=== PATIENT | female | born 1995 | race African-American/Black ===

== ENCOUNTER 2024-12-31 14:54 | Inpatient (IN) | payer MEDICAID ==
[~2024-12-31] VITALS: Ht 165.1 cm; Wt 67.4 kg
[~2024-12-31 14:54] MED LIST: ALBU0.084; FLUT100M7; NEBUMIS40
--- NOTE | 2024-12-31 17:14 | ED.PDOC ---
GI ASSESSMENT HPI Comments HPI: 29 y/o F, presents to the ED for CC of abdominal pain. Patient states, she has been experiencing epigastric abdominal pain that radiates to her midback x3days. Patient endorses, new onset symptoms of lightheadedness and nausea starting today (12/31/24). Patient relays, that she did consume copious amounts of alcohol on an empty stomach x4 days ago. Patient denies vomiting, diarrhea, dysuria, or hematuria. No other symptoms or modifying factors at this time. VITALS: Temp: 97.8 BP: 142/90 HR:102 RR: 20 SPO2:100% Past medical history: DENIES ANY Past surgical history: DENIES ANY Medications: Amoxicillin Nicolas HPI: Poor Historian. Marijuana and alcohol Past Medical History: Past Surgical History: REVIEW OF SYSTEMS: CONSTITUTIONAL: Denies acute: fever, diaphoresis, chills, generalized weakness. HEAD: Denies acute: headache, photophobia Eyes: Denies acute: Double vision, vision loss, eye pain, eye discharge. EARS: Denies acute: tinnitus, hearing loss, ear discharge, ear pain, THROAT: Denies acute: sore throat, swelling, difficulty swallowing , pain with swallowing, change in voice. NECK: Denies acute: neck pain, neck swelling, stiff neck. HEART: Denies acute : chest pain, palpitations, LUNGS: Denies acute: SOB, wheezing, cough, hemoptysis ABDOMEN: Denies acute: Nausea, Vomiting, diarrhea, melena , hematemesis, hematochezia SKIN: Denies acute: rash, redness, lesions, itchiness. EXTREMITIES: Denies acute: calf pain, numbness, tingling, weakness, denies pain in extremity. Denies acute: Low back pain. Neuro: Denies acute: focal neurological deficit, motor or sensory focal neurological deficit, tremors, seizure like activity, confusion, dizziness, change in mental status, loss of bowel or bladder function, cauda equina like symptoms. : Denies acute: dysuria, hematuria, flank pain, increase in urinary frequency. PSYCH: Denies acute: hallucination, suicidal ideation, homicidal ideation. FEMALE: Denies acute: abnormal vaginal bleeding, foul odor, unusual discharge. PHYSICAL EXAM: General: -----mild---acute distress, awake and alert. Head: normocephalic, atraumatic. Neck: supple, trachea is midline, no swelling. Throat: Normal phonation. Eyes:, no erythema, no purulent discharge, no proptosis, no icterus. Heart: regular rate, regular rhythm, no significant murmur appreciated. Lungs: no apparent respiratory distress, Able to speak in full sentences. No wheezing, no rhonchi, no crackles. No stridors Clear to auscultation bilaterally. Abdomen: Epigastric tender to palpation, non distended, soft, no guarding, no rebound, + bowel sounds. Neuro: Awake, Alert, oriented to name, self, situation, follows commands GCS=15. Speech is normal. Skin: no petechia, no purpura, no cyanosis, non-pale, not jaundice. Lower extremities: --no - Pitting edema no deformity, no focal swelling, no calf TTP. Makes eye contact. moves all four extremities. Face: no apparent facial droop. Ambulating in the ED independently. ED COURSE: Chief Complaint: Abdominal Pain Time Seen by MD: 17:00 Primary Care Provider: NONE Reviewed Notes: Nurses Notes, Medications, Allergies Allergies: Coded Allergies: NO KNOWN ALLERGIES (Unverified , 05/15/11) Home Meds Reported Medications Nebulizers (Nebulizer) Ultrason Mis 05/15/11 Albuterol Sulfate (Albuterol Sulfate) 0.083 % Neb 05/15/11 Fluticasone-Salmeterol (Advair Diskus) 100/50 Mis 05/15/11 Information Source: Patient Mode of Arrival: Ambulatory Timing: Days Duration: Since onset Prehospital treatment: None Quality: None Vomitus: None Stool: Normal Severity: Moderate Recent Hx of: None Pain Location: Epigastric Modifying Factors: Nothing Associated sign and symptoms: Nausea GI differential Dx Differential Diagnosis: Gastritis/PUD, Gastroenteritis, UTI, Electrolyte Imbalance, Food Poisoning, Bacterial, Viral, Other (DDX include Diverticulitis, colitis, gastroenteritis, acute abdomen, SBO, enteritis, constipation, volvulus, appendicitis, Gallbladder disease, choledocolithiasis, ascending cholangitis, pancreatitis, intraAbdominal mass/neoplasm, hepatitis, UTI, pylonephritis, kidney stone, aneurysm, dissection, Inflammatory bowel disease, gastroparesis, ischemic bowel, ovarian torsion, ovarian cyst/mass, tubo-ovarian abscess, , ectopic , PID, STD.) X-Ray, Labs, Meds, VS Vital Signs Date Time Temp Pulse Resp B/P (MAP) Pulse Ox O2 Delivery O2 Flow Rate FiO2 12/31/24 20:07 98.2 99 18 171/89 (116) 96 98.2 12/31/24 20:07 99 18 96 Room Air 12/31/24 19:57 98.2 87 18 171/89 (116) 99 98.2 12/31/24 15:09 97.8 102 20 142/90 (107) 100 97.8 Lab Test 12/31/24 20:03 12/31/24 17:20 Range/Units Urine Color Colorless Yellow Urine Clarity Turbid H Clear Urine pH 6.5 5.0-9.0 Urine Specific [place] 1.007 1.001-1.035 Urine Protein Negative Negative Urine Ketones Negative Negative Urine Blood 1+ H Negative /uL Urine Nitrite Negative Negative Urine Bilirubin Negative Negative Urine Urobilinogen Normal Negative mg/dL Urine Leukocyte Esterase 1+ Negative /uL Urine RBC 3 0 - 4 /hpf Urine Microscopic WBC 14 H 0-5 /HPF Urine Squamous Epithelial Cells Mod <5 /hpf Urine Bacteria Few H None Seen /hpf Urine Glucose Normal Normal mg/dL Urine Test Negative Negative Urine Opiates Screen Neg NEGATIVE Urine Fentanyl Screen Neg NEGATIVE Urine Barbiturates Screen Neg NEGATIVE Urine Phencyclidine Screen Neg NEGATIVE Urine Amphetamines Screen Neg NEGATIVE Urine Benzodiazepines Screen Neg NEGATIVE Urine Cocaine Screen Neg NEGATIVE Urine Cannabinoids Screen Pos NEGATIVE White Blood Count 8.1 4.4-10.8 10^3/uL Red Blood Count 4.44 4.0-5.20 10^6/uL Hemoglobin 8.5 L 12.2-16.2 g/dL Hematocrit 29.5 L 36.0-46.0 % Mean Corpuscular Volume 66.6 L 80.0-100.0 fL Mean Corpuscular Hemoglobin 19.2 L 28.0-32.0 pg Mean Corpuscular Hemoglobin Concent 28.8 L 32.0-36.0 g/dL Red Cell Distribution Width 25.7 H 11.8-14.3 % Platelet Count 613 H 140-450 10^3/uL Mean Platelet Volume 7.5 6.9-10.8 fL Neutrophils (%) (Auto) 70.5 37.0-80.0 % Lymphocytes (%) (Auto) 21.8 10.0-50.0 % Monocytes (%) (Auto) 6.9 0.0-12.0 % Eosinophils (%) (Auto) 0.5 0.0-7.0 % Basophils (%) (Auto) 0.3 0.0-2.0 % Neutrophils # (Auto) 5.7 1.6-8.6 10 ^3/uL Lymphocytes # (Auto) 1.8 0.4-5.4 10 ^3/uL Monocytes # (Auto) 0.6 0-1.3 10 ^3/uL Eosinophils # (Auto) 0 0-0.8 10 ^3/uL Basophils # (Auto) 0 0-0.2 10 ^3/uL Nucleated Red Blood Cells 0.0 % Platelet Estimate Increased Large Platelets Few Hypochromasia (manual) Marked Poikilocytosis (manual) Slight Anisocytosis (manual) Moderate Microcytosis Marked Sodium Level 136 136-145 mmol/L Potassium Level 3.1 L 3.5-5.1 mmol/L Chloride Level 108 H 98-107 mmol/L Carbon Dioxide Level 21 20-31 mmol/L Anion Gap 7 5-15 Blood Urea Nitrogen < 5 L 9-23 mg/dL Creatinine 0.71 0.550-1.02 mg/dL Glomerular Filtration Rate Calc 118 >90 mL/min BUN/Creatinine Ratio 7.0 L 10.0-20.0 Serum Glucose 115 H 74-106 mg/dL Lactic Acid Level 1.6 0.4-2.0 mmol/L Calcium Level 10.7 H 8.7-10.4 mg/dL Total Bilirubin 1.0 0.2-1.0 mg/dL Aspartate Amino Transferase (AST) 33 13-40 U/L Alanine Aminotransferase (ALT) 15 7-40 U/L Alkaline Phosphatase 114 46-116 U/L Total Protein 9.0 H 5.7-8.2 g/dL Albumin 5.0 H 3.2-4.8 g/dL Lipase 156 H 12-53 U/L Current Medications Medications (Trade) Dose Ordered Sig/Moise Route Start Time Stop Time Status Last Admin Lidocaine HCl (Xylocaine 2% Viscous) 10 ml ONCE ONCE PO 4/1/25 17:00 12/31/24 17:01 DC 12/31/24 20:06 Pantoprazole Sodium (Protonix Tablet) 40 mg ONCE ONCE PO 12/31/24 17:00 12/31/24 17:01 DC 12/31/24 20:06 Sucralfate (Carafate Tab) 1 gm ONCE ONCE PO 12/31/24 17:00 12/31/24 17:01 DC 12/31/24 20:06 Potassium Chloride (Klor-Con Tablet) 40 meq ONCE ONCE PO 12/31/24 19:45 12/31/24 19:48 DC 12/31/24 20:07 [place] [id number] Ph: [phone] DIAGNOSTIC IMAGING Diagnostic Imaging Report : [id number] S[address] PATIENT: [address] ACCT: [id number] UNIT: [id number] : 1995 LOC: ER ROOM / BED: / AGE / SEX: 29 / F ADM STATUS: REG ER SERVICE 1650 ORDERING PHYSICIAN: ROSALIND LANDON DO PROCEDURE(s): ABPL - CT AB PEL WO CON-NO ORAL OR IV REASON: abd pain ORDER NUMBER(s): [id number], ACCESSION NUMBER(s): [id number] Procedure: CT CT AB PEL WO CON-NO ORAL OR IV 12/31/2024 08:36 PM Indication: abd pain Comparison Study: None Technique: Axial images were obtained and reformatted in coronal and sagittal planes. All CT scans at this medical facility are performed using dose modulation techniques as appropriate to a performed exam including the following: Automated exposure control was utilized; adjustment of the MA and/or KV according to patient size; and use of iterative reconstruction technique. CT Dose: CTDI volume is 5.97 mGy. Dose-length product is 298.4 mGy*cm FINDINGS: Lower Chest: Base of the lungs are clear. The heart is normal in size. Suggestion of anemia. Hepatobiliary: Unremarkable. Spleen: Unremarkable. Pancreas: Unremarkable. Adrenal Glands: Unremarkable. tract: The kidneys are normal in size bilaterally . Mild fullness of the right renal pelvis. No urinary calculi. The urinary bladder is unremarkable. GI tract: The stomach is grossly normal in appearance. No evidence of small bowel obstruction. The large bowel is unremarkable. The appendix is normal. Lymphatics: No mesenteric, retroperitoneal or periportal lymphadenopathy. Vasculature: The abdominal aorta is normal in caliber. Pelvic Organs: Unremarkable Bones/soft tissues: No acute abnormality. Other: None. IMPRESSION: 1. Mild fullness of the right renal pelvis may represent extrarenal pelvis or hydronephrosis. No urinary calculi. Correlate clinically. ATED BY: CHRISTIE BOSS MD DICTATED DATE/TIME: 12/31/242117 SIGNED BY: CHRISTIE BOSS MD SIGNED DATE/TIME: 12/31/242117 CC: Time of 1ST Reevaluation: 17:30 Reevaluation 1ST: Unchanged Time of 2ND Reevaluation: 22:20 Reevaluation 2ND: Improved Patient Education/Counseling: Diagnosis, Treatment Family Education/Counseling: Other Comments Patient presented with the above HPI.-- ABDOMINAL PAIN---workup was initiated. patient was found with the above mentioned diagnosis. the following medications were ordered: the following tests were ordered: Labs, chest x-ray, EKG, UA Patient ED course and VS have been stabilized. Patient has been reassessed in the ED and remained in a stable condition. Pertinent incidental findings were discussed with the patient and/or family. Patient/family voices understanding and is agreeable with plan. Patient has been observed in the ED adequate length of time to insure improvement/stability. Escalation of care considered: Consideration of escalation to observation or admission Patient was ADMITTED to the medicine team for further evaluation and treatment of their presentation. Patient was DISCHARGED home in a stable condition. All the reports of any imaging studies that were ordered by myself were reviewed by myself. Departure 1 Departure Time of Disposition: 19:44 Impression: Primary Impression: Acute pancreatitis Additional Impressions: Alcoholic gastritis Anemia Hypokalemia UTI (urinary tract infection) Disposition: ADMITTED INPATIENT Admit to: [facility] Condition: Guarded Discharged With: Self Critical Care Note Critical Care Time?: Yes (35 min-critical care time only) Heart Score Heart Score: Heart Score Response (Comments) Value History N/A 0 EKG N/A 0 Age N/A 0 Risk Factors N/A 0 Troponin N/A 0 Total 0 I personally scribed for ROSALIND LANDON DO ([email or web address]) on 12/31/24 at 17:14. Electronically submitted by Hannah Navarrete ([email or web address]). ROSALIND LANDON DO Dec 31, 2024 17:14
[2024-12-31 18:08] LABS: Basophils # (auto) 0 10 ^3/uL (0-0.2); Basophils % (auto) 0.3 % (0.0-2.0); Eosinophils # (auto) 0 10 ^3/uL (0-0.8); Eosinophils % (auto) 0.5 % (0.0-7.0); Hematocrit 29.5 % (36.0-46.0); Hemoglobin 8.5 g/dL (12.2-16.2); Lymphocytes # (auto) 1.8 10 ^3/uL (0.4-5.4); Lymphocytes % (auto) 21.8 % (10.0-50.0); Mean Corpuscular Hemoglobin 19.2 pg (28.0-32.0); Mean Corpuscular Hgb Conc. 28.8 g/dL (32.0-36.0); Mean Corpuscular Volume 66.6 fL (80.0-100.0); Monocytes # (auto) 0.6 10 ^3/uL (0-1.3); Monocytes % (auto) 6.9 % (0.0-12.0); Neutrophils # (auto) 5.7 10 ^3/uL (1.6-8.6); Neutrophils % (auto) 70.5 % (37.0-80.0); Platelet Count (auto) 613 10^3/uL (140-450); Red Blood Cells 4.44 10^6/uL (4.0-5.20); White Blood Cell 8.1 10^3/uL (4.4-10.8)
[2024-12-31 18:09] LABS: Red Cell Distribution Width 25.7 % (11.8-14.3)
[2024-12-31 18:13] LABS: Alanine Aminotransferase 15 U/L (7-40); Alkaline Phosphatase 114 U/L (46-116); Anion Gap 7 (5-15); Aspartate Aminotransferase 33 U/L (13-40); Sodium 136 mmol/L (136-145)
[2024-12-31 18:18] LABS: Blood Urea Nitrogen < 5 mg/dL (9-23); Calcium 10.7 mg/dL (8.7-10.4); Carbon Dioxide 21 mmol/L (20-31); Chloride 108 mmol/L (98-107); Glucose 115 mg/dL (74-106); Lipase 156 U/L (12-53); Potassium 3.1 mmol/L (3.5-5.1)
[2024-12-31 19:54] LABS: Platelet Estimate Increased
[2024-12-31 19:55] LABS: Anisocytosis Moderate; Hypochromia Marked
[2024-12-31 19:56] LABS: Large Platelets FEW
[2024-12-31] MEDS: SUCRALFATE 1 GM TAB PO ONE (20:06)
[2024-12-31] MEDS: LIDOCAINE VISCOUS 2% 15ML UD PO ONE (20:06)
[2024-12-31] MEDS: PANTOPRAZOLE 40 MG TAB PO ONE (20:06)
[2024-12-31] MEDS: SODIUM CHLORIDE 0.9% 1,000 ML IV ONE (20:07)
[2024-12-31] MEDS: POTASSIUM CHL 20 Meq TABLET PO ONE (20:07)
[2024-12-31 20:26] LABS: Urine Bacteria FEW /hpf (None Seen); Urine Blood 1+ /uL (Negative); Urine Clarity Turbid (Clear); Urine Color Colorless (Yellow); Urine Protein, UAD Negative (Negative); Urine Specific Gravity 1.007 (1.001-1.035); Urine Squamous Epithelial Cell MOD /hpf (<5); Urine Urobilinogen Normal (Negative); Urine WBC 14 /HPF (0-5); Urine pH 6.5 (5.0-9.0)
[2024-12-31 20:37] LABS: Amphetamine Screen, Urine Neg (NEGATIVE); Barbiturate Scree,Urine Neg (NEGATIVE); Benzodiazephine Screen, Urine Neg (NEGATIVE); Cannabinoid Screen, Urine Pos (NEGATIVE); Cocaine Screen, Urine Neg (NEGATIVE); Opiate Scree,Urine Neg (NEGATIVE); Phencyclidine Screen, Urine Neg (NEGATIVE)
--- NOTE | 2024-12-31 21:20 | DVH ---
Procedure: CT CT AB PEL WO CON-NO ORAL OR IV 12/31/2024 08:36 PM Indication: abd pain Comparison Study: None Technique: Axial images were obtained and reformatted in coronal and sagittal planes. All CT scans at this medical facility are performed using dose modulation techniques as appropriate to a performed e xam including the following: Automated exposure control was utilized; adjustment of the MA and/or KV according to patient size; and use of iterative reconstruction technique. CT Dose: CTDI volume is 5.9 7 mGy. Dose-length product is 298.4 mGy*cm FINDINGS: Lower Chest: Base of the lungs are clear. The heart is normal in size. Suggestion of anemia. Hepatobiliary: Unremarkable. Spleen: Unremarkable. Pancreas: Unremarkable. Adrenal Glands: Unremarkable. tract: The kidneys are normal in size bilaterally . Mild fullness of the right renal pelvis. No u rinary calculi. The urinary bladder is unremarkable. GI tract: The stomach is grossly normal in appearance. No evidence of small bowel obstruction. The la rge bowel is unremarkable. The appendix is normal. Lymphatics: No mesenteric, retroperitoneal or periportal lymphadenopathy. Vasculature: The abdominal aorta is normal in caliber. Pelvic Organs: Unremarkable Bones/soft tissues: No acute abnormality. Other: None. IMPRESSION: 1. Mild fullness of the right renal pelvis may represent extrarenal pelvis or hydronephrosis. No urin juan calculi. Correlate clinically.
[2025-01-01] VITALS (9 sets, daily range): BP systolic 100–152; BP diastolic 61–94; PULSE 64–79; RESP 18–20; TEMP 98–99.1; O2SAT 96–100
[2025-01-01] MEDS: cefTRIAXone 1GM/50ML D5W 50 ML IV ONE (02:23)
[2025-01-01] MEDS ORDERED: cefTRIAXone 1GM/50ML D5W 50 ML IV ONE (02:30)
[2025-01-01] MEDS: ONDANSETRON HCL 4 MG/2 ML VIAL IM ONE (02:30)
--- NOTE | 2025-01-01 02:33 | DVHHPRES ---
History of Present Illness Resident Creating Document: ANITA GAINES RESDIENT History of Present Illness This is a 29-year-old female with past medical history of asthma, anxiety, with the impression and generalized body pain, came to the hospital due to abdominal pain since 2 days. Pain is localized at epigastric area, radiating to the back, sharp in nature, intermittent which worsened with taking food, 10/10. The pain started 1 day after a democrat where she drank alcohol. She also reports nausea, diarrhea,. She denies fever, chest pain, shortness of breaths, or any sick contacts or bladder habit changes PMHx: Asthma PSHx: Not significant Family history: Mother has diabetes Social history: Smokes marijuana, drank occasionally, denies any drug use Home medication: Albuterol, fluoxetine Allergic history: No known allergy Review of Systems Review of Systems General: patient denies fever, fatigue, weaknes, sweating, any recent changes in appetite and weight HEENT: No headaches, visiual changes, hearing loss, tinnitus, nasal congestion and discharge, and sore throat. Cardiovascular: Denies chest pain, palpitations, dyspnea on exertion, orthopnea, or claudication. Respiratory: No cough, and wheezing. Gastrointestinal: Reports abdominal pain and nausea Genitourinary: No dysuria, hematuria, discharge, frequency, urgency, nocturia, incontinence, and urinary retention. Endocrine: No heat or cold intolerance, polydipsia, polyuria, and polyphagia. Neurological: No dizziness, extremity weakness and numbness, tremors, gait disturbance, seizures, and memory impairment. Psychiatric: Denies depression, anxiety,or insomnia. Musculoskeletal: Denies neck pain, stiffness and swelling, back pain, muscle weakness, joint pain, stiffness, swelling, or limited range of motion. Skin: No rashes, itching, skin lesion, changes in hair, nail, skin texture and breast. Hematologic/Lymphatic: Denies easy bruising, bleeding tendencies, or lymph node enlargement. Allergies: Coded Allergies: Amoxicillin (Verified Allergy, Unknown, 01/01/25) Exam Vital Signs Vital Signs Date Time Temp Pulse Resp B/P (MAP) Pulse Ox O2 Delivery O2 Flow Rate FiO2 12/31/24 23:59 99.5 76 18 148/91 (110) 96 99.5 12/31/24 20:07 Room Air Exam General Appearance: Alert, Oriented X3, Cooperative, No acute distress HEENT: Atraumatic, PERRLA, EOMI, Mucous membrane moist/pink Respiratory: Clear to auscultation, Normal air movement Cardiovascular: Regular rate, Normal S1, Normal S2, No murmurs, no chest wall tenderness Abdominal: Epigastric tenderness Extremities: No clubbing, No cyanosis, No edema, Normal pulses, No tenderness/swelling Skin: No rashes, No breakdown, No significant lesion Neuro: Normal gait, Normal speech, Strength at 5/5 X4 ext, Normal tone, Sensation intact, Cranial nerves 3-12 NL, Reflexes 2+ Psych/Mental Status: Mental status NL, Mood NL Labs/Xrays Labs Test 12/31/24 20:03 12/31/24 17:20 Range/Units Urine Color Colorless Yellow Urine Clarity Turbid H Clear Urine pH 6.5 5.0-9.0 Urine Specific [place] 1.007 1.001-1.035 Urine Protein Negative Negative Urine Ketones Negative Negative Urine Blood 1+ H Negative /uL Urine Nitrite Negative Negative Urine Bilirubin Negative Negative Urine Urobilinogen Normal Negative mg/dL Urine Leukocyte Esterase 1+ Negative /uL Urine RBC 3 0 - 4 /hpf Urine Microscopic WBC 14 H 0-5 /HPF Urine Squamous Epithelial Cells Mod <5 /hpf Urine Bacteria Few H None Seen /hpf Urine Glucose Normal Normal mg/dL Urine Test Negative Negative Urine Opiates Screen Neg NEGATIVE Urine Fentanyl Screen Neg NEGATIVE Urine Barbiturates Screen Neg NEGATIVE Urine Phencyclidine Screen Neg NEGATIVE Urine Amphetamines Screen Neg NEGATIVE Urine Benzodiazepines Screen Neg NEGATIVE Urine Cocaine Screen Neg NEGATIVE Urine Cannabinoids Screen Pos NEGATIVE White Blood Count 8.1 4.4-10.8 10^3/uL Red Blood Count 4.44 4.0-5.20 10^6/uL Hemoglobin 8.5 L 12.2-16.2 g/dL Hematocrit 29.5 L 36.0-46.0 % Mean Corpuscular Volume 66.6 L 80.0-100.0 fL Mean Corpuscular Hemoglobin 19.2 L 28.0-32.0 pg Mean Corpuscular Hemoglobin Concent 28.8 L 32.0-36.0 g/dL Red Cell Distribution Width 25.7 H 11.8-14.3 % Platelet Count 613 H 140-450 10^3/uL Mean Platelet Volume 7.5 6.9-10.8 fL Neutrophils (%) (Auto) 70.5 37.0-80.0 % Lymphocytes (%) (Auto) 21.8 10.0-50.0 % Monocytes (%) (Auto) 6.9 0.0-12.0 % Eosinophils (%) (Auto) 0.5 0.0-7.0 % Basophils (%) (Auto) 0.3 0.0-2.0 % Neutrophils # (Auto) 5.7 1.6-8.6 10 ^3/uL Lymphocytes # (Auto) 1.8 0.4-5.4 10 ^3/uL Monocytes # (Auto) 0.6 0-1.3 10 ^3/uL Eosinophils # (Auto) 0 0-0.8 10 ^3/uL Basophils # (Auto) 0 0-0.2 10 ^3/uL Nucleated Red Blood Cells 0.0 % Platelet Estimate Increased Large Platelets Few Hypochromasia (manual) Marked Poikilocytosis (manual) Slight Anisocytosis (manual) Moderate Microcytosis Marked Sodium Level 136 136-145 mmol/L Potassium Level 3.1 L 3.5-5.1 mmol/L Chloride Level 108 H 98-107 mmol/L Carbon Dioxide Level 21 20-31 mmol/L Anion Gap 7 5-15 Blood Urea Nitrogen < 5 L 9-23 mg/dL Creatinine 0.71 0.550-1.02 mg/dL Glomerular Filtration Rate Calc 118 >90 mL/min BUN/Creatinine Ratio 7.0 L 10.0-20.0 Serum Glucose 115 H 74-106 mg/dL Lactic Acid Level 1.6 0.4-2.0 mmol/L Calcium Level 10.7 H 8.7-10.4 mg/dL Total Bilirubin 1.0 0.2-1.0 mg/dL Aspartate Amino Transferase (AST) 33 13-40 U/L Alanine Aminotransferase (ALT) 15 7-40 U/L Alkaline Phosphatase 114 46-116 U/L Total Protein 9.0 H 5.7-8.2 g/dL Albumin 5.0 H 3.2-4.8 g/dL Lipase 156 H 12-53 U/L Assessment/Plan Assessment/Plan Acute pancreatitis, likely due to alcohol use disorder Lipase is raised at [address] scan shows, mild fullness of the right renal pelvis may represent extrarenal pelvis or hydronephrosis IV fluid Pain control NPO Complicated UTI Urine culture Empiric antibiotic, Rocephin Hypokalemia, repleted Moderate anemia, microcytic hypochromic Iron panel Stool occult blood History of asthma History of anxiety/depression Continue home meds DIET: NPO DVT PROPHYLAXIS: Lovenox GI PROPHYLAXIS:: Protonix CODE STATUS: Goal of care discussed for more than 18 minutes, full code DISPOSITION: Med/surge Patient's status and plan discussed with the patient. Case discussed with Dr. Mendoza. Plan discussed with: Patient My Orders Orders - ANITA GAINES RESJOSE FRANCISCO Procedure Category Date Status Time Admit ADMIT 01/01/25 Verified 02:23 Code Status CODE 01/01/25 Verified 02:23 Vital Signs [facility] 01/01/25 Verified 02:23 Review Orders With [facility] 01/01/25 Verified Adm.Md 02:23 Npo (Nothing By DIET 01/01/25 Verified Mouth) Diet Breakfast Notify Md Of Changes [facility] 01/01/25 Verified From Base 02:23 Advance Directive [facility] 01/01/25 Verified 02:23 Lipid Panel LAB 01/01/25 Verified 02:23 Patient Condition ORDERS 01/01/25 Verified 02:23 Allergies JIM 01/01/25 Verified 02:23 Drug Screen LAB 01/01/25 Verified 02:23 Morphine 2mg Iv Q4hprn PHA 01/01/25 Verified 02:30 Lovenox 40mg PHA 01/01/25 Verified 10:00 Stat Ekg For Chest [facility] 01/01/25 Verified Pain 02:23 Notify Md Of Changes [facility] 01/01/25 Verified From Base 02:23 Complete Blood Count LAB 01/01/25 Verified 02:23 Comprehensive LAB 01/01/25 Verified Metabolic Panel 02:23 PTPTT LAB 01/01/25 Verified 02:23 Blood Alcohol LAB 01/01/25 Verified 02:23 NS PHA 01/01/25 Verified 02:30 Pantoprazole PHA 01/01/25 Verified (Protonix) 02:30 Pantoprazole PHA 01/01/25 Verified (Protonix) 10:00 Ondansetron Hcl PHA 01/01/25 Verified (Zofran) 02:30 Ondansetron Hcl PHA 01/01/25 Verified (Zofran) 02:30 Ceftriaxone Ivpb PHA 01/01/25 Verified Rocephin 09:00 Ceftriaxone Ivpb PHA 01/01/25 Verified Rocephin 02:30 Urine Bacterial ELLIE 01/01/25 Verified Culture 02:23 Magnesium LAB 01/01/25 Verified 02:23 Lipase LAB 01/01/25 Verified 02:23 LIVER US 01/01/25 Verified 07:00 Date of Service: Jan 01, 2025 Billing Provider: ALLEN MENDOZA MD Common Visit Codes: [id number] INP/OBS CARE (HIGH) ANITA GAINES RESDIENT Jan 01, 2025 02:33 ALLEN MENDOZA MD Jan 01, 2025 14:41
[2025-01-01] MEDS: ONDANSETRON HCL 4 MG/2 ML VIAL IV ONE (02:39)
[2025-01-01 02:55] LABS: Basophils # (auto) 0.1 10 ^3/uL (0-0.2); Eosinophils # (auto) 0 10 ^3/uL (0-0.8); Monocytes # (auto) 0.6 10 ^3/uL (0-1.3); Monocytes % (auto) 7.2 % (0.0-12.0)
[2025-01-01] MEDS: SODIUM CHLORIDE 0.9% 1,000 ML IV SCH (03:09)
[2025-01-01] MEDS: PANTOPRAZOLE 40 MG/10 ML VIAL INJ IV ONE (03:09)
[2025-01-01 03:18] LABS: Alanine Aminotransferase 12 U/L (7-40); Albumin 4.7 g/dL (3.2-4.8); Alkaline Phosphatase 100 U/L (46-116); Anion Gap 7 (5-15); Aspartate Aminotransferase 24 U/L (13-40); BUN/Creatinine Ratio 6.9 (10.0-20.0); Basophils % (auto) 0.9 % (0.0-2.0); Calcium 10.2 mg/dL (8.7-10.4); Carbon Dioxide 23 mmol/L (20-31); Eosinophils % (auto) 0.2 % (0.0-7.0); Hematocrit 23.1 % (36.0-46.0); Hemoglobin 7.1 g/dL (12.2-16.2); Lymphocytes # (auto) 1.2 10 ^3/uL (0.4-5.4); Lymphocytes % (auto) 14.8 % (10.0-50.0); Magnesium 1.7 mg/dL (1.6-2.6); Mean Corpuscular Hemoglobin 19.6 pg (28.0-32.0); Mean Corpuscular Hgb Conc. 30.7 g/dL (32.0-36.0); Mean Corpuscular Volume 63.8 fL (80.0-100.0); Neutrophils # (auto) 6.2 10 ^3/uL (1.6-8.6); Neutrophils % (auto) 76.9 % (37.0-80.0); Platelet Count (auto) 551 10^3/uL (140-450); Red Blood Cells 3.62 10^6/uL (4.0-5.20); Red Cell Distribution Width 25.6 % (11.8-14.3); Sodium 138 mmol/L (136-145)
[2025-01-01 03:19] LABS: Bilirubin, Total 0.7 mg/dL (0.2-1.0)
[2025-01-01 03:26] LABS: Blood Urea Nitrogen 5 mg/dL (9-23); Chloride 108 mmol/L (98-107); Glucose 118 mg/dL (74-106); Lipase 123 U/L (12-53); Potassium 3.4 mmol/L (3.5-5.1); Total Protein 8.4 g/dL (5.7-8.2)
[2025-01-01 03:30] LABS: Partial Thromboplastin Time 24.3 SEC (24.5-34.5); Prothrombin Time 10.6 sec (9.3-11.8)
[2025-01-01] MEDS: MORPHINE SULFATE INJ 2 MG/ml SYRG IV PRN (03:37)
[2025-01-01 04:05] LABS: Triglycerides 69 mg/dL (< 150)
[2025-01-01 04:06] LABS: LDL Cholesterol 57 mg/dL (< 100)
[2025-01-01 04:07] LABS: Cholesterol 148 mg/dL (< 200)
[2025-01-01 04:14] LABS: HDL Cholesterol 78 mg/dL (40-59)
[2025-01-01 04:26] LABS: Anisocytosis Moderate; Hypochromia Moderate; Platelet Estimate Increased
[2025-01-01] MEDS: SODIUM CHL 0.9% 100 ML IV ONE (07:45)
[2025-01-01] MEDS: POTASSIUM CHL 20MEQ/50ML 50 ML IV ONE (07:45)
[2025-01-01] MEDS: SUCRALFATE 1 GM/10 ML ORAL SUSP PO SCH (08:30)
[2025-01-01] MEDS: PANTOPRAZOLE 40 MG/10 ML VIAL INJ IV SCH (08:30)
[2025-01-01] MEDS: POTASSIUM EFFERVESENT TAB 25 MEQ PO ONE (09:33)
[2025-01-01] MEDS: cefTRIAXone 1GM/50ML D5W 50 ML IV SCH (09:34)
[2025-01-01] MEDS ORDERED: ENOXAPARIN SOD 40 MG/0.4 ML SYRINGE SC SCH (10:00)
[2025-01-01] MEDS ORDERED: PANTOPRAZOLE 40 MG/10 ML VIAL INJ IV SCH (10:00)
--- NOTE | 2025-01-01 10:07 | DVH ---
INDICATION: Cholelithiasis,hydronephrosis TECHNIQUE: Multiple real-time sonographic images of the abdomen were obtained. COMPARISON: None FINDINGS: The liver is homogenous in echogenicity. No intrahepatic biliary ductal dilatation is noted . No hepatic masses were seen. The gallbladder wall measures 0.1 mm and is normal in size. No gallstones or sludge is seen. The c ommon duct measures 0.3 mm and is normal in size. No pericholecystic fluid is noted. The right kidney measures 12cm and is normal in size. The right renal echogenicity, contour and evangelina ical thickness are within normal limits. No hydronephrosis or large masses are seen. The left kidney measures 11cm and is normal in size. The left renal echogenicity, contour, and corti hero thickness are within normal limits. No hydronephrosis or large masses are seen. The spleen measures 9cm, within normal limits. The echogenicity is within normal limits. The pancreas is not well visualized. The aorta is not well visualized. The ivc is not well visualized. IMPRESSION: Normal exam of the abdomen.
--- NOTE | 2025-01-01 14:40 | DVHPNRES ---
Progress Note Date Seen: Jan 01, 2025 Resident Creating Document: GERARD KC RESIDENT Medical Necessity Reason Pt with a Central, PICC or Fol: No Subjective Review of Systems This is a 29-year-old female with past medical history of asthma, anxiety, with the impression and generalized body pain, came to the hospital due to abdominal pain since 2 days. Pain is localized at epigastric area, radiating to the back, sharp in nature, intermittent which worsened with taking food, 10/10. The pain started 1 day after a libertarian where she drank alcohol. She also reports nausea, diarrhea,. She denies fever, chest pain, shortness of breaths, or any sick contacts or bladder habit changes. Patient was seen and examined on the bedside. she is alert oriented x3. Complaining of mild epigastric pain and burning sensation in the urine. No other active complaint. Constitutional: No: Fever, Chills, Sweats, Weakness, Malaise, Other Eyes: No: Pain, Vision change, Conjunctivae inflammation, Eyelid inflammation, Other, Redness ENT: No: Ear pain, Ear discharge, Nose pain, Nose discharge, Nose congestion, Mouth pain, Mouth swelling, Throat pain, Throat swelling, Other Respiratory: Shortness of breath, improving No: Cough, Dry,Wheezing, Hemoptysis, Pleuritic Pain, Sputum, Wheezing, Other Cardiovascular: No: Chest Pain, Palpitations, Orthopnea, Paroxysmal Noc. Dyspnea, Edema, Lt Headedness, Other Gastrointestinal: Abdominal pain ,Nausea, Vomiting, No Diarrhea, Constipation, Melena, Hematochezia, Other Musculoskeletal: No: other, neck pain, shoulder pain, arm pain, back pain, hand pain, leg pain, foot pain Neurological:; No: Weakness, Numbness, Incoordination, Change in speech, Confusion, Seizures Objective vital signs Vital Sign Date Time Temp Pulse Resp B/P (MAP) Pulse Ox O2 Delivery O2 Flow Rate FiO2 01/01/25 13:57 73 20 118/76 01/01/25 12:31 98.2 100 98.2 01/01/25 03:23 Room Air* 0 21 Total Intake and Output 12/31/24 12/31/24 01/01/25 15:00 23:00 07:00 Intake Total 0 ml Balance 0 ml medications Current Medications Medications Dose Ordered Sig/Moise Route Start Time Stop Time Status Last Admin Dose Admin Morphine Sulfate 2 mg Q4HPRN PRN IV 01/01/25 02:30 01/01/25 13:27 2 MG Sodium Chloride 1,000 ml @ 100 mls/hr Q10H IV 01/01/25 02:30 01/01/25 13:27 100 MLS/HR Ceftriaxone Sodium 50 ml @ 100 mls/hr DAILY@09 IV 01/01/25 09:00 01/01/25 09:34 100 MLS/HR Pantoprazole Sodium 40 mg BID IV 01/01/25 07:30 01/01/25 08:30 40 MG Sucralfate 1 gm BID@0600,2200 PO 01/01/25 07:31 01/01/25 08:30 1 GM Examination Physical examination: General Appearance: Alert, Oriented X3, Cooperative, No acute distress HEENT: Atraumatic, PERRLA, EOMI, Mucous membrane moist/pink Respiratory: Clear to auscultation, Normal air movement Cardiovascular: Regular rate, Normal S1, Normal S2, No murmurs, no chest wall tenderness Abdominal: Mild epigastric tenderness, Normal bowel sounds, Soft, No hepatospenomegaly, No masses Extremities: No clubbing, No cyanosis, No edema, Normal pulses, No tenderness/swelling Skin: No rashes, No breakdown, No significant lesion Neuro: Normal gait, Normal speech, Strength at 5/5 X4 ext, Normal tone, Sensation intact, Cranial nerves 3-12 NL, Reflexes 2+ Psych/Mental Status: Mental status NL, Mood NL laboratory and microbiology Laboratory Tests 01/01/25 02:40 Test 01/01/25 02:40 Range/Units Serum Glucose 118 H 74-106 mg/dL Labs and/or images reviewed: Labs reviewed by me, Image(s) reviewed by me Problem List/Assessment/Plan Problem List/Assessment/Plan Assessment and plan: # Intractable abdominal pain likely due to acute pancreatitis # Acute pancreatitis, likely due to alcohol use disorder - Lipase trends are 156>123 - Abdominal CT scan shows, mild fullness of the right renal pelvis may represent extrarenal pelvis or hydronephrosis - Clear liquid diet - IV normal saline at 100 mL/hour - IV morphine 2 mg q.4 PRN - IV ondansetron 4 mg Q 8 p.r.n. # Acute on chronic microcytic anemia likely due to dilutional, rule out GI bleeding # Chronic microcytic anemia likely due to menorrhagia - H/H is 7.1/23.1 - Ordered stool occult blood test - IV Protonix 40 mg b.i.d. - Carafate suspension 1 g p.o. b.i.d. # Acute complicated cystitis - U/A is consistent with the UTI - Ordered bacterial culture - IV ceftriaxone 1 g daily # Hypokalemia - Replenished # History of asthma # History of anxiety/depression -Continue home meds DIET: NPO DVT PROPHYLAXIS: Hold due to the possibility of bleeding GI PROPHYLAXIS:: Protonix CODE STATUS: Goal of care discussed for more than 18 minutes, full code DISPOSITION: Med/surge Plan discussed with: Patient, Other My Orders My Orders Orders - GERARD KC Procedure Category Date Status Time Pantoprazole PHA 01/01/25 In Process (Protonix) 07:30 Sucralfate Susp PHA 01/01/25 In Process (Carafate Susp) 07:31 Npo Except Ice Chips ORDERS 01/01/25 Transmitted 09:28 Clear Liq Diet DIET 01/01/25 Transmitted Lunch Date of Service: Jan 01, 2025 Billing Provider: TREVER GOODWIN MD Common Visit Codes: [id number] INP/OBS CARE(HIGH) GERARD KC RESIDENT Jan 01, 2025 14:40 TREVER GOODWIN MD Jan 02, 2025 00:17
[2025-01-02] VITALS (8 sets, daily range): BP systolic 125–156; BP diastolic 77–103; PULSE 66–79; RESP 16–18; TEMP 97.7–98.6; O2SAT 99–100
[2025-01-02 06:23] LABS: Alanine Aminotransferase 10 U/L (7-40); Albumin 4.5 g/dL (3.2-4.8); Alkaline Phosphatase 93 U/L (46-116); Anion Gap 8 (5-15); Aspartate Aminotransferase 19 U/L (13-40); Basophils # (auto) 0 10 ^3/uL (0-0.2); Basophils % (auto) 0.4 % (0.0-2.0); Bilirubin, Total 0.7 mg/dL (0.2-1.0); Calcium 10.3 mg/dL (8.7-10.4); Carbon Dioxide 24 mmol/L (20-31); Eosinophils # (auto) 0 10 ^3/uL (0-0.8); Eosinophils % (auto) 0.5 % (0.0-7.0); Glucose 94 mg/dL (74-106); Hemoglobin 7.5 g/dL (12.2-16.2); Lymphocytes # (auto) 1.7 10 ^3/uL (0.4-5.4); Neutrophils # (auto) 4.1 10 ^3/uL (1.6-8.6); Nucleated Red Blood Cells % 0.1 %; Sodium 139 mmol/L (136-145)
[2025-01-02 06:26] LABS: Hematocrit 26.2 % (36.0-46.0); Lymphocytes % (auto) 26.1 % (10.0-50.0); Mean Corpuscular Hemoglobin 18.8 pg (28.0-32.0); Mean Corpuscular Hgb Conc. 28.7 g/dL (32.0-36.0); Mean Corpuscular Volume 65.4 fL (80.0-100.0); Monocytes # (auto) 0.6 10 ^3/uL (0-1.3); Monocytes % (auto) 9.8 % (0.0-12.0); Neutrophils % (auto) 63.2 % (37.0-80.0); Platelet Count (auto) 487 10^3/uL (140-450); White Blood Cell 6.4 10^3/uL (4.4-10.8)
[2025-01-02 06:33] LABS: BUN/Creatinine Ratio 6.9 (10.0-20.0); Blood Urea Nitrogen < 5 mg/dL (9-23); Chloride 107 mmol/L (98-107); Potassium 3.3 mmol/L (3.5-5.1); Red Cell Distribution Width 26.2 % (11.8-14.3)
[2025-01-02 07:51] LABS: Anisocytosis Moderate; Hypochromia Marked; Platelet Estimate Increased
[2025-01-02] MEDS: POTASSIUM EFFERVESENT TAB 25 MEQ PO ONE (10:09)
[2025-01-02] MEDS: metroNIDAZOLE 500MG/100ML 100 ML IV ONE (11:13)
--- NOTE | 2025-01-02 13:49 | DVHPNRES ---
Progress Note Date Seen: Jan 02, 2025 Resident Creating Document: GERARD KC RESIDENT Medical Necessity Reason Pt with a Central, PICC or Fol: No Subjective Review of Systems The patient was seen and examined on the bedside. She is alert oriented x3. Pain in the right lower gum, swelling and mild abdominal pain. Able to tolerate oral diet and no other active complaint. Objective vital signs Vital Sign Date Time Temp Pulse Resp B/P (MAP) Pulse Ox O2 Delivery O2 Flow Rate FiO2 01/02/25 13:00 97.7 70 17 133/90 (104) 100 97.7 01/02/25 08:00 Room Air* 0 21 Total Intake and Output 01/01/25 01/01/25 01/02/25 15:00 23:00 07:00 Intake Total 50 ml 315 ml 700 ml Balance 50 ml 315 ml 700 ml medications Current Medications Medications Dose Ordered Sig/Moise Route Start Time Stop Time Status Last Admin Dose Admin Morphine Sulfate 2 mg Q4HPRN PRN IV 01/01/25 02:30 01/02/25 11:14 2 MG Sodium Chloride 1,000 ml @ 100 mls/hr Q10H IV 01/01/25 02:30 01/02/25 05:35 100 MLS/HR Ceftriaxone Sodium 50 ml @ 100 mls/hr DAILY@09 IV 01/01/25 09:00 01/02/25 10:09 100 MLS/HR Pantoprazole Sodium 40 mg BID IV 01/01/25 07:30 01/02/25 10:08 40 MG Sucralfate 1 gm BID@0600,2200 PO 01/01/25 07:31 01/02/25 05:35 1 GM Metronidazole 100 ml @ 100 mls/hr Q8HR IV 01/02/25 22:00 Examination Physical examination: General Appearance: Alert, Oriented X3, Cooperative, No acute distress HEENT: Atraumatic, PERRLA, EOMI, Mucous membrane pale Respiratory: Clear to auscultation, Normal air movement Cardiovascular: Regular rate, Normal S1, Normal S2, No murmurs, no chest wall tenderness Abdominal: Normal bowel sounds, Soft, mild tenderness present, No hepatospenomegaly, No masses Extremities: No clubbing, No cyanosis, No edema, Normal pulses, No tenderness/swelling Skin: No rashes, No breakdown, No significant lesion Neuro: Normal gait, Normal speech, Strength at 5/5 X4 ext, Normal tone, Sensation intact, Cranial nerves 3-12 NL, Reflexes 2+ Psych/Mental Status: Mental status NL, Mood NL laboratory and microbiology Laboratory Tests 01/02/25 05:47 Test 01/02/25 05:47 Range/Units Serum Glucose 94 74-106 mg/dL Labs and/or images reviewed: Labs reviewed by me, Image(s) reviewed by me Problem List/Assessment/Plan Problem List/Assessment/Plan Assessment and plan: # Intractable abdominal pain likely due to acute pancreatitis # Acute pancreatitis, likely due to alcohol use disorder - Lipase trends are 156>123 - Abdominal CT scan shows, mild fullness of the right renal pelvis may represent extrarenal pelvis or hydronephrosis - Clear liquid diet - IV normal saline at 100 mL/hour - IV morphine 2 mg q.4 PRN - IV ondansetron 4 mg Q 8 p.r.n. # Right-sided swelling of the gum due to infected tooth - IV metronidazole 500 mg t.i.d. the patient # Acute on chronic microcytic anemia likely due to dilutional, rule out GI bleeding # Chronic microcytic anemia likely due to menorrhagia - H/H is 7.1/23.1 - Ordered stool occult blood test - IV Protonix 40 mg b.i.d. - Carafate suspension 1 g p.o. b.i.d. # Acute complicated cystitis - U/A is consistent with the UTI - Ordered bacterial culture - IV ceftriaxone 1 g daily # Hypokalemia - Replenished # History of asthma # History of anxiety/depression -Continue home meds DIET: NPO DVT PROPHYLAXIS: Hold due to the possibility of bleeding GI PROPHYLAXIS:: Protonix CODE STATUS: Goal of care discussed for more than 18 minutes, full code DISPOSITION: Med/surge Plan discussed with: Patient, Other My Orders My Orders Orders - GERARD KC Procedure Category Date Status Time Metronidazole PHA 01/02/25 In Process 500mg/100ml (Flagyl 22:00 Date of Service: Jan 02, 2025 Billing Provider: TREVER GOODWIN MD Common Visit Codes: [id number] INP/OBS CARE(HIGH) GERARD KC RESIDENT Jan 02, 2025 13:49 TREVER GOODWIN MD Jan 05, 2025 22:26
[2025-01-02] MEDS: metroNIDAZOLE 500MG/100ML 100 ML IV SCH (22:46)
[2025-01-03] VITALS (7 sets, daily range): BP systolic 94–164; BP diastolic 52–77; PULSE 68–92; RESP 17–20; TEMP 97.8–98.4; O2SAT 96–99
[2025-01-03 06:52] LABS: Basophils # (auto) 0 10 ^3/uL (0-0.2); Basophils % (auto) 0.4 % (0.0-2.0); Eosinophils # (auto) 0 10 ^3/uL (0-0.8); Eosinophils % (auto) 0.6 % (0.0-7.0); Hematocrit 23.2 % (36.0-46.0); Lymphocytes # (auto) 1.4 10 ^3/uL (0.4-5.4); Lymphocytes % (auto) 27.7 % (10.0-50.0); Mean Corpuscular Hemoglobin 19.5 pg (28.0-32.0); Monocytes # (auto) 0.6 10 ^3/uL (0-1.3); Monocytes % (auto) 12.3 % (0.0-12.0); Nucleated Red Blood Cells % 0.1 %; Platelet Count (auto) 352 10^3/uL (140-450); Red Blood Cells 3.58 10^6/uL (4.0-5.20); White Blood Cell 5.1 10^3/uL (4.4-10.8)
[2025-01-03 06:53] LABS: Sodium 140 mmol/L (136-145)
[2025-01-03 06:54] LABS: Anion Gap 7 (5-15); Calcium 10.3 mg/dL (8.7-10.4); Carbon Dioxide 25 mmol/L (20-31)
[2025-01-03 06:55] LABS: Chloride 108 mmol/L (98-107); Potassium 3.4 mmol/L (3.5-5.1)
[2025-01-03 06:57] LABS: Red Cell Distribution Width 25.7 % (11.8-14.3)
[2025-01-03 06:59] LABS: Glucose 86 mg/dL (74-106)
[2025-01-03 07:02] LABS: Blood Urea Nitrogen < 5 mg/dL (9-23)
[2025-01-03] MEDS ORDERED: FER325T PO (15:10)
--- NOTE | 2025-01-03 15:17 | DVHDS2 ---
Discharge Summary Date of Admission Jan 01, 2025 at 02:23 Date of Discharge: Jan 03, 2025 Labs/Diagnostic Data: Laboratory Results Test 01/03/25 06:25 01/02/25 05:47 01/01/25 02:40 12/31/24 20:03 White Blood Count 5.1 10^3/uL (4.4-10.8) Red Blood Count 3.58 10^6/uL (4.0-5.20) Hemoglobin 7.0 g/dL (12.2-16.2) Hematocrit 23.2 % (36.0-46.0) Mean Corpuscular Volume 65.0 fL (80.0-100.0) Mean Corpuscular Hemoglobin 19.5 pg (28.0-32.0) Mean Corpuscular Hemoglobin Concent 30.0 g/dL (32.0-36.0) Red Cell Distribution Width 25.7 % (11.8-14.3) Platelet Count 352 10^3/uL (140-450) Mean Platelet Volume 8.4 fL (6.9-10.8) Neutrophils (%) (Auto) 59.0 % (37.0-80.0) Lymphocytes (%) (Auto) 27.7 % (10.0-50.0) Monocytes (%) (Auto) 12.3 % (0.0-12.0) Eosinophils (%) (Auto) 0.6 % (0.0-7.0) Basophils (%) (Auto) 0.4 % (0.0-2.0) Neutrophils # (Auto) 3.0 10 ^3/uL (1.6-8.6) Lymphocytes # (Auto) 1.4 10 ^3/uL (0.4-5.4) Monocytes # (Auto) 0.6 10 ^3/uL (0-1.3) Eosinophils # (Auto) 0 10 ^3/uL (0-0.8) Basophils # (Auto) 0 10 ^3/uL (0-0.2) Nucleated Red Blood Cells 0.1 % Sodium Level 140 mmol/L (136-145) Potassium Level 3.4 mmol/L (3.5-5.1) Chloride Level 108 mmol/L (98-107) Carbon Dioxide Level 25 mmol/L (20-31) Anion Gap 7 (5-15) Blood Urea Nitrogen < 5 mg/dL (9-23) Creatinine 0.71 mg/dL (0.550-1.02) Glomerular Filtration Rate Calc 118 mL/min (>90) BUN/Creatinine Ratio 7.0 (10.0-20.0) Serum Glucose 86 mg/dL (74-106) Calcium Level 10.3 mg/dL (8.7-10.4) Platelet Estimate Increased Hypochromasia (manual) Marked Poikilocytosis (manual) Slight Anisocytosis (manual) Moderate Microcytosis Marked Total Bilirubin 0.7 mg/dL (0.2-1.0) Aspartate Amino Transferase (AST) 19 U/L (13-40) Alanine Aminotransferase (ALT) 10 U/L (7-40) Alkaline Phosphatase 93 U/L (46-116) Total Protein 8.0 g/dL (5.7-8.2) Albumin 4.5 g/dL (3.2-4.8) Prothrombin Time 10.6 sec (9.3-11.8) Prothrombin Time INR 1.00 (0.9-1.15) Activated Partial Thromboplast Time 24.3 SEC (24.5-34.5) Magnesium Level 1.7 mg/dL (1.6-2.6) Ferritin 2.8 ng/mL (10-291) Triglycerides Level 69 mg/dL (< 150) Cholesterol Level 148 mg/dL (< 200) LDL Cholesterol 57 mg/dL (< 100) HDL Cholesterol 78 mg/dL (40-59) Lipase 123 U/L (12-53) Plasma/Serum Blood Alcohol 3.0 mg/dL (<10) Urine Color Colorless (Yellow) Urine Clarity Turbid (Clear) Urine pH 6.5 (5.0-9.0) Urine Specific [place] 1.007 (1.001-1.035) Urine Protein Negative (Negative) Urine Ketones Negative (Negative) Urine Blood 1+ /uL (Negative) Urine Nitrite Negative (Negative) Urine Bilirubin Negative (Negative) Urine Urobilinogen Normal mg/dL (Negative) Urine Leukocyte Esterase 1+ /uL (Negative) Urine RBC 3 /hpf (0 - 4) Urine Microscopic WBC 14 /HPF (0-5) Urine Squamous Epithelial Cells Mod /hpf (<5) Urine Bacteria Few /hpf (None Seen) Urine Glucose Normal mg/dL (Normal) Urine Test Negative (Negative) Urine Opiates Screen Neg (NEGATIVE) Urine Fentanyl Screen Neg (NEGATIVE) Urine Barbiturates Screen Neg (NEGATIVE) Urine Phencyclidine Screen Neg (NEGATIVE) Urine Amphetamines Screen Neg (NEGATIVE) Urine Benzodiazepines Screen Neg (NEGATIVE) Urine Cocaine Screen Neg (NEGATIVE) Urine Cannabinoids Screen Pos (NEGATIVE) Test 12/31/24 17:20 Large Platelets Few Lactic Acid Level 1.6 mmol/L (0.4-2.0) Other Laboratory Tests 01/03/25 06:25 Brief Hx & Hospital Course: 29-year-old female with a known history of anxiety disorder, chronic asthma presented to the hospital with the abdominal pain found to have acute pancreatitis. Patient was kept NPO started on IV fluids. Patient was also found to have UTI which was treated with the IV antibiotics. Patient currently tolerating diet. Patient does have anemia currently no active evidence of bleeding. Ferrous sulfate prescription will be prescribed and outpatient microcytic anemia workup with the PCP. Patient's CT abdomen shows some fullness in the right renal pelvis could be extrarenal pelvis. Ultrasound shows no evidence of any acute pathology. Patient is being discharged under stable condition. Condition at Discharge: Stable Final Diagnosis/Problems List 1. Acute pancreatitis, resolved 2. Microcytic anemia, outpatient workup with the PCP, continue ferrous sulfate tablets 3. UTI, treated 4. Anxiety disorder 5. Chronic asthma 6. Right-sided fullness in renal pelvis, could be extra renal pelvis, outpatient follow up with the PCP with a repeat ultrasound of the abdomen to make sure there is no hydronephrosis otherwise need workup with Urology. Discharge Disposition: Home SNF Discharge Will this Physician continue t: No Discharge Instruct/Medications Diet: Regular Activity: No Restrictions, As Tolerated Follow Up/Referral: Follow up with the PCP in 1-2 weeks Medications: Resume home medications, ferrous sulfate prescription given. Discharge Statement: "Patient was advised to return to the ER or call 911 if any headaches, dizziness, shortness of breath, chest pain, abdominal pain, bleeding, fevers, or worsening of medical condition. Patient was counseled about treatment plan, medications, possible side effects, patientverbalized understanding. All questions were answered to the best of my ability. This discharge took greater then 30 minutes in planning, reviewing documentation, counseling the patient, and discussing with other team members." ASSESSMENT ASSESSMENT Assessment 1. Acute pancreatitis, resolved 2. Microcytic anemia, outpatient workup with the PCP, continue ferrous sulfate tablets 3. UTI, treated 4. Anxiety disorder 5. Chronic asthma 6. Right-sided fullness in renal pelvis, could be extra renal pelvis, outpatient follow up with the PCP with a repeat ultrasound of the abdomen to make sure there is no hydronephrosis otherwise need workup with Urology. Date of Service: Jan 03, 2025 Billing Provider: VERENA QUISPE MD Common Visit Codes: [id number] DISCH DAY >30min VERENA QUISPE MD Jan 03, 2025 15:17
[2025-01-03] MEDS: POTASSIUM EFFERVESENT TAB 25 MEQ PO ONE (17:35)
== END 2025-01-03 18:56 | disposition home or self-care (01) | DRG 282 ==
LOC: ER 14:58 → OVERFLOW 01-01 02:23 → EAST 01-01 04:08
PROVIDERS: ADMIT Internal Medicine; ATTEND Internal Medicine
DX: K85.90 Acute pancreatitis without necrosis or infection, unspecified (principal); N13.6 Pyonephrosis; D50.9 Iron deficiency anemia, unspecified; E87.6 Hypokalemia; J45.909 Unspecified asthma, uncomplicated; N30.00 Acute cystitis without hematuria; K04.7 Periapical abscess without sinus; K29.20 Alcoholic gastritis without bleeding; F41.9 Anxiety disorder, unspecified; Z79.899 Other long term (current) drug therapy
CPT/HCPCS: 36415; 74176; 76700; 80048; 80053; 80061; 80307; 80320; 81001; 81025; 82728; 83605; 83690; 83735; 85025; 85610; 85730; 87086; 99291; G0378; J2470; J3490